=== PATIENT | male | born 2000 | race Caucasian/White ===

== ENCOUNTER 2020-07-23 02:35 | Inpatient (IN) ==
[2020-07-23] MEDS ORDERED: DIPHTHERIA/TETANUS/PERTUSSIS 0.5 ML SYR/VIAL IM ONE (02:58)
--- NOTE | 2020-07-23 03:03 | Emergency Department Note ---
Impression & Plan Depression with suicidal ideation, Deliberate self-cutting, Hwefgtvpcj-mnblrnb-ynwjiiulo (DTP) vaccination ED Provider Note Name: LORIE KAPADIA Age: 20 Sex: M Arrives Via: Walk-In Informant: Patient ED Provider: Marin Matthews MD Chief Complaint: Mental Health Evaluation Impression: Depression with suicidal ideation Deliberate Self Cutting DTP Vaccination Medical Decision Makin yr old male with what sounds like long standing undiagnosed depression with manic episodes arrives after he attempted to cut open his wrist in bath tub this evening. Admits he has been very depressed recently, to the point of not even eating. Medically he is clear, tetanus was updated and lacerations do not require closure. Stable throughout and evaluated by Case management who feels hospitalization warranted. Signed out to Dr Casiano pending placement Triage/Nursing Notes reviewed by Me Differentials:Mood disorder, infection, hypoglycemia, electrolyte abnormalities, cardiac sources, intracerebral event, toxicologic, trauma, neurologic, as well as other pathologies. amongst other pathologies. Vital Signs: reviewed and remarkable for no significant abnormalities Interventions: Adacel IM Labs:Reviewed and remarkable for no significant abnormalities Plan: Disposition: Signed out to Dr Casiano Condition: Good History of Present Illness:20 yr old male arrives for evaluation of depression. Patient notes long history of highs and lows and over the last few days/weeks he has been feeling very low. Denies any specific cause/incident though has become increasingly depressed. Tonight he decided to kill himself thus got in the bathtub and started to cut right forearm with razor before stopping. He called crisis and discussed with them. Sent to ED for evaluation. Patient admits suicidal ideation with attempt earlier. He has remote history of "self destructive" behavior and previous suicide attempt by overdose but no previous psychiatric hospitalizations. He states he has no thoughts of harming others nor hallucinations. He has been taking no medications for this. Nothing seems to make things better nor worse. Denies trauma, injuries, falls. Denies sob, cp, cough, fevers, chills, headache, abdominal pain nor other symptoms. Admits loss of interest in things and a lack of appetite recently. ROS: See above HPI for pertinent positives & negatives. A total of 10 systems reviewed and were otherwise negative. 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 EYES: No scleral icterus, unremarkable pupils. ENT: Mucous membranes moist, no nasal congestion. NECK: No masses appreciated, nomeningismus, trachea is midline. RESPIRATORY: No dyspnea. Clear to auscultation and equal bilaterally. No wheeze, no rhonchi. CARDIOVASCULAR: Regular rate and rhythm.No murmurs, rubs, gallops appreciated. GASTROINTESTINAL: Abdomen soft, non-tender, no peritonitis.Bowel sounds positive.No masses appreciated. BACK: No midline tenderness, no CVA tenderness EXTREMITIES: Superficial vertical abrasions right mid/distal forearm without requiring sutures. Distal n/v intact. Normal motion all extremities, no c yanosis, no edema. NEUROLOGIC: Alert and oriented, no acute motor or sensory deficits, no focal weakness, cranial nerves grossly intact. SKIN: No rash, no jaundice, no diaphoresis. Heavily tattooed. PSYCH: Sad/depressed, admits suicidal ideation with plan/attempt, no homicidal ideation, no hallucinations. GCS: 15 ED Course: Times/Reassessments: Stable, no issues, case management working on placement Marin Matthews MD Past Med/Surg History Social History Smoking Status: Never smoker Feels Safe at Home: Yes Allergies Allergies Allergy/AdvReac Type Severity Reaction Status Date / Time pollen extracts Allergy Nasal Verified 07/23/20 05:13 Discharge dog dander AdvReac Nasal Verified 07/23/20 05:13 Discharge Home Meds Home Medications Medication Instructions Recorded Confirmed No Known Home Medications 07/23/20 07/23/20 Results & Data (ED) Vital Signs Vital Signs - 24 hr 07/23/20 02:38 07/23/20 04:30 Temperature 36.6 C Temperature Source Temporal Artery Scan Pulse Rate 63 Pulse Rate [Finger] 71 Respiratory Rate 14 18 Respiratory Effort / Characteristics Non-Labored Spontaneous Non-Labored Spontaneous Respiratory Depth Normal Normal Blood Pressure 148/78 H Blood Pressure [Right Arm] 110/61 Blood Pressure Mean 101 Blood Pressure Mean [Right Arm] 77 Pulse Oximetry 98 97 Oxygen Delivery Method Room Air Room Air Sepsis Recent Fever Within 48 Hours No Sepsis New/Unexplained Change in Mental Status No Sepsis Action Taken by Nursing No Action Required Laboratory Data Result diagrams: 07/23/20 03:07 07/23/20 03:07 Lab Results 07/23/20 07/23/20 07/23/20 Range/Units 02:45 02:45 03:07 WBC 8.48 (4.8-10.8) K/uL RBC 4.95 (4.7-6.1) M/uL Hgb 15.2 (14.0-18.0) g/dL Hct 42.8 (42-52) % MCV 86.5 (80-100) fL MCH 30.7 (25-34) pg MCHC 35.5 (32-36) g/dL RDW Std Deviation 42.3 (36.4-46.3) fL RDW Coeff of Silvia 13.4 (11.5-14.5) % Plt Count 256 (130-400) K/uL MPV 8.8 (7.4-10.4) fL Immature Gran % (Auto) 0.1 % Neut % (Auto) 59.6 % Lymph % (Auto) 27.0 % [place] % (Auto) 12.6 % Eos % (Auto) 0.5 % Baso % (Auto) 0.2 % Neut # (Auto) 5.05 (1.4-6.5) K/uL Lymph # (Auto) 2.29 (1.2-3.4) K/uL [place] # (Auto) 1.07 H (0.11-0.59) K/uL Eos # (Auto) 0.04 (0-0.5) K/uL Baso # (Auto) 0.02 (0-0.2) K/uL Immature Gran # (Auto) 0.01 (0.00-0.02) K/uL Sodium (136-145) mmol/L Potassium (3.5-5.1) mmol/L Chloride (98-107) mmol/L Carbon Dioxide (21-32) mmol/L Anion Gap (3-11) BUN (7-18) mg/dl Creatinine (0.6-1.4) mg/dl Est Cr Clr Drug Dosing ml/min Est GFR ( Amer) ml/min Est GFR (Non-Af Amer) ml/min BUN/Creatinine Ratio (10-20) Glucose (70-99) mg/dl Calcium (8.5-10.1) mg/dl Total Bilirubin (0.2-1) mg/dl AST (15-37) U/L ALT (12-78) U/L Alkaline Phosphatase (45-117) U/L Total Protein (6.4-8.2) gm/dl Albumin (3.4-5.0) gm/dl Globulin (2.5-4.0) gm/dl Albumin/Globulin Ratio (0.9-2) TSH (0.300-4.500) uIu/ml Urine Color Dark Yellow Urine Appearance Clear (Clear) Urine pH 6.0 (4.5-7.5) Ur Specific [place] 1.029 (1.000-1.030) Urine Protein Negative (Negative) Urine Glucose (UA) Negative (Negative) Urine Ketones Trace H (Negative) Urine Blood Negative (Negative) Urine Nitrite Negative (Negative) Urine Bilirubin Negative (Negative) Urine Urobilinogen Negative (Negative) Ur Leukocyte Esterase Negative (Negative) Salicylates (2.8-20) mg/dl Urine Opiates Screen Neg (Neg) Ur Methadone, Qual Neg (Neg) Acetaminophen (10-30) ug/ml Urine Barbiturates Neg (Neg) Ur Phencyclidine (PCP) Neg (Neg) U Amphetamin/Meth Scrn Neg (Neg) MDMA (Ecstasy) Screen Neg (Neg) U Benzodiazepines Scrn Neg (Neg) Ur Cocaine Metabolite Neg (Neg) U Marijuana (THC) Screen Pos H (Neg) Ethyl Alcohol mg/dL (0-3) mg/dl COVID-19 Eval Order SARS-CoV-2, RNA, NAAT (NEGATIVE) 07/23/20 07/23/20 07/23/20 Range/Units 03:07 03:07 03:07 WBC (4.8-10.8) K/uL RBC (4.7-6.1) M/uL Hgb (14.0-18.0) g/dL Hct (42-52) % MCV (80-100) fL MCH (25-34) pg MCHC (32-36) g/dL RDW Std Deviation (36.4-46.3) fL RDW Coeff of Silvia (11.5-14.5) % Plt Count (130-400) K/uL MPV (7.4-10.4) fL Immature Gran % (Auto) % Neut % (Auto) % Lymph % (Auto) % [place] % (Auto) % Eos % (Auto) % Baso % (Auto) % Neut # (Auto) (1.4-6.5) K/uL Lymph # (Auto) (1.2-3.4) K/uL [place] # (Auto) (0.11-0.59) K/uL Eos # (Auto) (0-0.5) K/uL Baso # (Auto) (0-0.2) K/uL Immature Gran # (Auto) (0.00-0.02) K/uL Sodium 141 (136-145) mmol/L Potassium 3.7 (3.5-5.1) mmol/L Chloride 108 H (98-107) mmol/L Carbon Dioxide 29 (21-32) mmol/L Anion Gap 4.0 (3-11) BUN 13 (7-18) mg/dl Creatinine 1.32 (0.6-1.4) mg/dl Est Cr Clr Drug Dosing 95.1 ml/min Est GFR ( Amer) 89.4 ml/min Est GFR (Non-Af Amer) 77.1 ml/min BUN/Creatinine Ratio 10.0 (10-20) Glucose 104 H (70-99) mg/dl Calcium 9.1 (8.5-10.1) mg/dl Total Bilirubin 0.7 (0.2-1) mg/dl AST 18 (15-37) U/L ALT 63 (12-78) U/L Alkaline Phosphatase 86 (45-117) U/L Total Protein 7.7 (6.4-8.2) gm/dl Albumin 4.0 (3.4-5.0) gm/dl Globulin 3.7 (2.5-4.0) gm/dl Albumin/Globulin Ratio 1.1 (0.9-2) TSH 1.030 (0.300-4.500) uIu/ml Urine Color Urine Appearance (Clear) Urine pH (4.5-7.5) Ur Specific [place] (1.000-1.030) Urine Protein (Negative) Urine Glucose (UA) (Negative) Urine Ketones (Negative) Urine Blood (Negative) Urine Nitrite (Negative) Urine Bilirubin (Negative) Urine Urobilinogen (Negative) Ur Leukocyte Esterase (Negative) Salicylates < 1.7 L (2.8-20) mg/dl Urine Opiates Screen (Neg) Ur Methadone, Qual (Neg) Acetaminophen < 2 L (10-30) ug/ml Urine Barbiturates (Neg) Ur Phencyclidine (PCP) (Neg) U Amphetamin/Meth Scrn (Neg) MDMA (Ecstasy) Screen (Neg) U Benzodiazepines Scrn (Neg) Ur Cocaine Metabolite (Neg) U Marijuana (THC) Screen (Neg) Ethyl Alcohol mg/dL < 3.0 (0-3) mg/dl COVID-19 Eval Order SARS-CoV-2, RNA, NAAT (NEGATIVE) 07/23/20 07/23/20 Range/Units 03:17 03:17 WBC (4.8-10.8) K/uL RBC (4.7-6.1) M/uL Hgb (14.0-18.0) g/dL Hct (42-52) % MCV (80-100) fL MCH (25-34) pg MCHC (32-36) g/dL RDW Std Deviation (36.4-46.3) fL RDW Coeff of Silvia (11.5-14.5) % Plt Count (130-400) K/uL MPV (7.4-10.4) fL Immature Gran % (Auto) % Neut % (Auto) % Lymph % (Auto) % [place] % (Auto) % Eos % (Auto) % Baso % (Auto) % Neut # (Auto) (1.4-6.5) K/uL Lymph # (Auto) (1.2-3.4) K/uL [place] # (Auto) (0.11-0.59) K/uL Eos # (Auto) (0-0.5) K/uL Baso # (Auto) (0-0.2) K/uL Immature Gran # (Auto) (0.00-0.02) K/uL Sodium (136-145) mmol/L Potassium (3.5-5.1) mmol/L Chloride (98-107) mmol/L Carbon Dioxide (21-32) mmol/L Anion Gap (3-11) BUN (7-18) mg/dl Creatinine (0.6-1.4) mg/dl Est Cr Clr Drug Dosing ml/min Est GFR ( Amer) ml/min Est GFR (Non-Af Amer) ml/min BUN/Creatinine Ratio (10-20) Glucose (70-99) mg/dl Calcium (8.5-10.1) mg/dl Total Bilirubin (0.2-1) mg/dl AST (15-37) U/L ALT (12-78) U/L Alkaline Phosphatase (45-117) U/L Total Protein (6.4-8.2) gm/dl Albumin (3.4-5.0) gm/dl Globulin (2.5-4.0) gm/dl Albumin/Globulin Ratio (0.9-2) TSH (0.300-4.500) uIu/ml Urine Color Urine Appearance (Clear) Urine pH (4.5-7.5) Ur Specific [place] (1.000-1.030) Urine Protein (Negative) Urine Glucose (UA) (Negative) Urine Ketones (Negative) Urine Blood (Negative) Urine Nitrite (Negative) Urine Bilirubin (Negative) Urine Urobilinogen (Negative) Ur Leukocyte Esterase (Negative) Salicylates (2.8-20) mg/dl Urine Opiates Screen (Neg) Ur Methadone, Qual (Neg) Acetaminophen (10-30) ug/ml Urine Barbiturates (Neg) Ur Phencyclidine (PCP) (Neg) U Amphetamin/Meth Scrn (Neg) MDMA (Ecstasy) Screen (Neg) U Benzodiazepines Scrn (Neg) Ur Cocaine Metabolite (Neg) U Marijuana (THC) Screen (Neg) Ethyl Alcohol mg/dL (0-3) mg/dl COVID-19 Eval Order Covid19 [facility] SARS-CoV-2, RNA, NAAT NEGATIVE (NEGATIVE) Administered Medications Discontinued Medications Diphtheria/Pertussis/Tetanus Vacc (Diphtheria/Tetanus/Pertussis 0.5 Ml Syr/Vial) 0.5 ml IM .ONCE ONE Stop: 07/23/20 02:59 Last Admin: 07/23/20 03:12 Dose: 0.5 ml Documented by: [id number] Discharge Plan Visit Data Chief Complaint: Mental Health Evaluation Stated Complaint: MENTAL HEALTH EVALUATION ED Provider: Marin Matthews Discharge Problem: Depression with suicidal ideation, Deliberate self-cutting, Qxgypuxjal-dskusts-eohvkqupa (DTP) vaccination Forms Stand Alone Forms: [facility], Suicide Prevention Resources Prescriptions Prescriptions: No Action No Known Home Medications RF: 0
[2020-07-23 03:20] LABS: Basophils # (auto) 0.02 K/uL (0-0.2); Basophils % (auto) 0.2 %; Eosinophils # (auto) 0.04 K/uL (0-0.5); Eosinophils % (auto) 0.5 %; Hematocrit (blood only) 42.8 % (42-52); Hemoglobin 15.2 g/dL (14.0-18.0); Immature Granulocytes # (auto) 0.01 K/uL (0.00-0.02); Immature Granulocytes % (auto) 0.1 %; Lymphocytes # (auto) 2.29 K/uL (1.2-3.4); Mean Corpuscular Hemoglobin 30.7 pg (25-34); Mean Corpuscular Hgb Conc 35.5 g/dL (32-36); Mean Corpuscular Volume 86.5 fL (80-100); Mean Platelet Volume 8.8 fL (7.4-10.4); Monocytes # (auto) 1.07 K/uL (0.11-0.59); Monocytes % (auto) 12.6 %; Neutrophils # (auto) 5.05 K/uL (1.4-6.5); Neutrophils % (auto) 59.6 %; Platelet Count 256 K/uL (130-400); RDW Coefficient of Variation 13.4 % (11.5-14.5); RDW Standard Deviation 42.3 fL (36.4-46.3); Red Blood Count 4.95 M/uL (4.7-6.1); White Blood Count 8.48 K/uL (4.8-10.8)
[2020-07-23 03:26] LABS: Appearance Urine Clear (Clear); Bilirubin Urine Negative (Negative); Blood Urine Negative (Negative); Color Urine Dark Yellow; Glucose Urine UA Negative (Negative); Ketones Urine Trace (Negative); Leukocyte Esterase Urine Negative (Negative); Nitrite Urine Negative (Negative); Protein Urine Negative (Negative); Specific Gravity Urine 1.029 (1.000-1.030); Urobilinogen Urine Negative (Negative)
[2020-07-23 03:52] LABS: Calcium 9.1 mg/dl (8.5-10.1); Creatinine Clr Calc Pharmacy 95.1 ml/min; Est GFR (African American) 89.4 ml/min; Est GFR (Non-African American) 77.1 ml/min; Potassium 3.7 mmol/L (3.5-5.1)
[2020-07-23 03:54] LABS: Amphetamines+Metham, Urine Neg (Neg); Barbiturates, Urine Neg (Neg); Benzodiazepine, Urine Neg (Neg); Cocaine, Urine Neg (Neg); MDMA (Ecstacy), Urine Neg (Neg); Methadone, Urine Neg (Neg); Opiate, Urine Neg (Neg); Phencyclidine, Urine Neg (Neg)
[2020-07-23 04:03] LABS: Albumin Globulin Ratio 1.1 (0.9-2); Bilirubin,Total 0.7 mg/dl (0.2-1); Globulin 3.7 gm/dl (2.5-4.0); Thyroid Stimulating Hormone 1.03 uIu/ml (0.300-4.500); Total Protein 7.7 gm/dl (6.4-8.2)
[2020-07-23 04:05] LABS: Acetaminophen < 2 ug/ml (10-30); Salicylate < 1.7 mg/dl (2.8-20)
[2020-07-23] MEDS ORDERED: BISMUTH SUBSALICYLATE LIQD 236 ML PO PRN (09:10)
[2020-07-23] MEDS ORDERED: ALUMINUM/MAGNESIUM SUSP 30 ML UDC PO PRN (09:10)
[2020-07-23] MEDS ORDERED: ACETAMINOPHEN 325 MG TAB PO PRN (09:10)
[2020-07-23] MEDS ORDERED: hydrOXYzine HCl 25 MG TAB PO PRN ×2 (09:10)
[2020-07-23] MEDS ORDERED: SODIUM CHLORIDE 0.65% NA SOLN 45 ML (OCEAN) PRN (09:10)
[2020-07-23] MEDS ORDERED: MAGNESIUM HYDROXIDE SUSP 30 ML UDC PO PRN (09:10)
--- NOTE | 2020-07-23 09:56 | Emergency Department Note ---
ED Visit Note Patient was accepted to [facility] [address] .
[2020-07-23] MEDS: lamoTRIgine 25 MG TAB PO SCH (13:21)
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
[2020-07-24] MEDS: lamoTRIgine 25 MG TAB PO SCH (08:55)
--- NOTE | 2020-07-24 12:04 | Psychiatric Progress Note ---
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 He endorses complex PTSD symptoms and has a prior hx of suicide attempt which did not receive treatment. He only cut once before this incident and currently denies SI but is considered high risk as he has a history of head injury and ongoing oral steroid use. Reviewed with patient that presentation could also suggest underlying bipolar disorder but difficult to diagnose given co-morbid factors. He appears fit and with some acne but otherwise no gynecomastia or striae suggestive of higher dose steroids by injection. 07/24/20--improving, although denies suicidal ideation he remains at risk given lack of aftercare, limited insight into substance use and ongoing unresolved relationship triggers. (1) Post traumatic stress disorder (PTSD): 07/24/20--reviewed lamictal titration for future reference. no rash. 07/23/20--The patient was admitted to the [facility] ([facility] unit) on q15 min checks (behavioral with suicide precautions) for safety. The patient will participate in group, recreational, and milieu therapies and will be offered additional individual and family sessions as clinically appropriate. Given hx of concussion, possible bipolar II or substance induced component suggest trial of mood stabilizer over an SSRI. He is resistant to any medication that would result in weight gain or sexual side effects. Risks/benefits/alternatives reviewed re: Lamictal for mood stabilization. Discussion included but was not limited to slow titration to decrease risks of 's Capo syndrome. Patient agrees to hold med/notify current prescriber of rash immediately. Will start 25 mg Lamictal with additional titration after 2 weeks on an outpatient basis. (2) Depression with suicidal ideation: 07/23/20--suspect bipolar II but cannot fully diagnosis in setting of complex PTSD and ongoing substance use. (3) Anabolic steroid abuse: 07/24/20--patient is agreeable to outpatient therapy to decrease use. 07/23/20--The patient admits to cyclic use of anabolic steroids for several years. Brief intervention was offered and accepted. Intervention was greater than 5 min in length and included assessing readiness to quit, advice on how to reduce or abstain from performance enhancing substances and to set a specific goal for this hospitalization. lasting floorworker will also assist in anticipating barriers to staying off substances and in problem-solving for solutions to those problems while arranging for referral to appropriate treatment. The patient is in precontemplation stage with regards to transtheoretical model of change. The patient is advised to decrease consumption due to effects on mood. The patient will be provided with recovery materials to continue to educate self on how to cope with their condition without drinking. Inventory Assets Strengths: relationship with mother and boyfriend of 1 year, motivated to return to his training schedule. 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 Review of Systems Sleep Information Total Hours of Sleep: 6.5 Meal Information Percent Meal Consumed - Breakfast: 100 Percent Meal Consumed - Lunch: 100 Percent Meal Consumed - Dinner: 100 Subjective Subjective Patient was seen & assessed and interval progress reviewed with treatment team. Family meeting today with mother and boyfriend but most triggering issues (past abuse, performance drugs, etc) doesn't want discussed. Aftercare is also a concern given income/lack of insurance. Tolerated first dose of Lamictal. [place] lizes I need to "cut back on everything I've been doing and set some limits on the outside relationship". Recognized attempt as impulsive and is hopeful mood stabilizer and understanding of his condition will result in better self-control in the future. Physical Exam Psychiatric Orientation: alert Apperance: appropriately dressed and appropriately groomed Eye Contact: good eye contact Motor Behavior: no abnormal motor movements Speech: normal rate/rhythm/volume of speech Affect: euthymic affect Mood: + depressed mood Thought Process: linear/logical thought process Thought Content: reality based without delusions Suicidal Thoughts: denies suicidal thoughts Homicidal Thoughts: denies homicidal thoughts Hallucinations: no auditory hallucinations and no visual hallucinations Cognition: remote memory grossly intact, attention grossly intact and language grossly intact Estimated Intelligence: consistent with education level Insight: + poor insight Judgement: + poor judgement Vital Signs (Past 24 Hours) Last Vital Signs Temp 36.4 C L 07/24/20 06:51 Pulse 80 07/24/20 06:52 Resp 61 H 07/24/20 06:51 BP 136/73 07/24/20 06:52 Pulse Ox 98 07/23/20 09:40 Results & Data ([facility]) Current Inpatient Medications Current Inpatient Medications: Current Inpatient Medications Acetaminophen (Acetaminophen 325 Mg Tab) 650 mg PO Q4H PRN PRN Reason: Headache or Minor Fever Stop: 08/22/20 09:09 Al Hydrox/Mg Hydrox/Simethicone (Aluminum/Magnesium Susp 30 Ml Udc) 30 ml PO Q4H PRN PRN Reason: GI Upset Stop: 08/22/20 09:09 Bismuth Subsalicylate (Bismuth Subsalicylate Liqd 236 Ml) 15 ml PO PRN PRN PRN Reason: Loose Stool Stop: 08/22/20 09:09 Hydroxyzine HCl (Hydroxyzine Hcl 25 Mg Tab) 50 mg PO HSZ PRN PRN Reason: Insomnia Stop: 08/22/20 09:09 Hydroxyzine HCl (Hydroxyzine Hcl 25 Mg Tab) 25 mg PO Q4H PRN PRN Reason: Anxiety Stop: 08/22/20 09:09 Lamotrigine (Lamotrigine 25 Mg Tab) 25 mg PO QAM FLAVIA Stop: 08/22/20 10:44 Last Admin: 07/24/20 08:55 Dose: 25 mg Documented by: Magnesium Hydroxide (Magnesium Hydroxide Susp 30 Ml Udc) 30 ml PO DAILY PRN PRN Reason: Constipation Stop: 08/22/20 09:09 Sodium Chloride (Sodium Chloride 0.65% Na Soln 45 Ml ([place])) 1 - 2 sprays NA PRN PRN PRN Reason: Nasal Dryness/Congestion Stop: 08/22/20 09:09 Mental Health & Subst Abuse Tx Therapist Name of Therapist: none Building Maintenance Mechanic Name of Building Maintenance Mechanic: None Post Discharge Appointments Primary Care Physician Name Of Family Doctor: none
[2020-07-25 02:48] LABS: Marijuana Quant, GCMS Urine 391 ng/mL (<5)
[2020-07-25] MEDS: lamoTRIgine 25 MG TAB PO SCH (08:28)
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
--- NOTE | 2020-08-09 13:57 | Communication Note ---
Date of Service: August 09, 2020 watch case polisher called nurses station as [place] was [place] of [place] and missed his follow up psychiatric appointment but they are in process of rescheduling. took last lamictal yesterday. Requesting refill. Rx for 50 mg daily lamictal called by nurse Haily to pharmacy of choice (planned dose titration) as tolerating well/no rash reported.
== END 2020-07-25 10:57 | disposition home or self-care (01) | DRG 885 ==
LOC: ED 02:35 → 3S 09:10